=== PATIENT | female | born 1990 | race Caucasian/White ===

== ENCOUNTER 2023-04-17 16:49 | Emergency (ER) | payer OTHER, SELFPAY ==
[2023-04-17 16:59] VITALS: BP 110/65; BP 116/75; PULSE 93; PULSE 98; RESP 18; TEMP 37.1; O2SAT 100; O2SAT 98; BMI 23.8
--- NOTE | 2023-04-17 17:00 | ED.GENADULT ---
HPI - General Adult General Chief complaint: General Medical Stated complaint: CHEST PAIN DIZZY Source: patient Mode of arrival: EMS Limitations: no limitations History of Present Illness HPI narrative: Patient is a 32-year-old female who presents to the emergency department via EMS for evaluation Headache, weakness, dizziness, chills, body aches, intermittent chest pain. Reportedly started taking acomprosate yesterday, symptoms started soon after. Reports last drink 03/24/23, reportedly it is just to prevent craving while she is out with friends. Denies known sick contacts Related Data Allergies Allergy/AdvReac Type Severity Reaction Status Date / Time No Known Allergies Allergy Verified 04/17/23 17:04 Review of Systems Review of Systems: Yes all other systems are reviewed and are negative [facility] Past Medical History Attestation statement: The following information was validated with the patient. Source: old records reviewed Physical Exam ED Vital Signs: Vital Signs - 24 hr 04/17/23 16:59 Temperature 98.8 F Pulse Rate 98 Respiratory Rate 18 Blood Pressure 116/75 Pulse Oximetry 100 Oxygen Delivery Method Room Air BMI result Body Mass Index 23.8 Appearance: Alert.?Oriented to person, place and time. No acute distress.?Normal affect. Eyes: Pupils equal, round and reactive to light.? ENT: Pharynx normal.?? Neck: Normal inspection.? Neck supple.?? CVS: Heart sounds normal. Normal heart rate and rhythm.? Pulses normal.?? Respiratory: No respiratory distress.? Lung sounds clear to auscultation bilaterally?? Abdomen: Soft and non-tender. Normoactive bowel sounds. Skin: Skin warm and dry.? Normal skin color.? ? Extremities: No lower extremity edema.? No calf ttp? Neuro: Moves all extremities spontaneously. Sensation intact bilaterally. CN II-XII intact. No focal neuro deficits. Ambulates with normal steady gait. Course Reevaluation(s) Reevaluation #1: COVID-19 testing was positive which is likely the etiology of her symptoms. CBC reveals a normocytic anemia, reports a history of baseline at baseline, no hematuria, melena, hematochezia, or sources of bleeding by her account. CMP is overall unremarkable. High sensitive troponin nondetectable, EKG revealing normal sinus rhythm, with ventricular rate of 94, W[place] interval normal, QTC 422, no ST elevation, no ST depression, no acute ischemic abnormalities, unlikely ACS. Discussed plan of care for discharge home, conservative treatment, outpatient follow-up with PCP, reviewed worrisome signs and symptoms that would warrant re-evaluation in the emergency department. All questions answered. Stable for discharge. Time: 19:06 Medical Decision Making Medical Decision Making [facility] Narrative: Patient is a 32-year-old female past medical history of alcohol use disorder presenting to emergency department today with viral symptoms as per HPI. She is overall well-appearing, nontoxic, currently afebrile. She is in no apparent respiratory distress. Suspect that chest pain is less likely due to ACS given history and no risk factors. No respiratory distress, would defer CXR imaging, lower suspicion for pneumonia. PERC negative, unlikely PE. Will obtain CBC to evaluate for leukocytosis/ anemia, CMP and lipase to evaluate for abnormal electrolytes /abnormal renal function/ abnormal hepatic/biliary function, EKG and troponin to evaluate for ischemia/ACS, and viral testing. Differential Diagnosis Differential Diagnoses: The differential diagnosis associated with the presentation includes (As noted above) Lab Data [facility] Lab Attestation statement: I reviewed the patient's lab results. (See course narrative) 04/17/23 17:19 04/17/23 17:19 Labs: Lab Results 04/17/23 04/17/23 Range/Units 17:19 17:20 WBC 3.6 L (4.8-10.8) X10*3/uL RBC 3.40 L (4.20-5.50) X10*6/uL Hgb 9.9 L (12.0-16.0) g/dl Hct 29.8 L (37.0-47.0) % MCV 87.6 (80.0-98.0) fL MCH 29.1 (27.0-33.0) pg MCHC 33.2 (31.0-35.0) g/dl RDW 15.3 (11.0-16.0) % Plt Count 178 (160-400) X10*3/uL MPV 9.5 (9.4-12.3) fL Immature Gran % (Auto) 0.0 (0.0-0.4) % Neut % (Auto) 66.8 (45-73) % Lymph % (Auto) 23.6 (20-40) % [place] % (Auto) 8.4 (2-11) % Eos % (Auto) 0.6 (0-4) % Baso % (Auto) 0.6 (0-2) % Lymph # (Auto) 0.8 L (1.2-4.9) X10*3/uL [place] # (Auto) 0.3 (0.1-1.2) X10*3/uL Eos # (Auto) 0.0 (0.0-0.4) X10*3/uL Baso # (Auto) 0.0 (0.0-0.2) X10*3/uL Abs Immat Gran (auto) 0.00 (0.00-0.03) X10*3/uL Absolute Neuts (auto) 2.4 (2.0-8.3) x10*3/uL Absolute Nucleated RBC 0.000 (0.0-0.012) X10*3/uL Nucleated RBC % (auto) 0.0 (0.0-0.2) /100WBC Sodium 134 L (135-145) mmol/L Potassium 4.1 (3.3-5.1) mmol/L Chloride 103 (96-108) mmol/L Carbon Dioxide 23 (22-29) mmol/L Anion Gap 12 (12-20) BUN 10 (9-16) mg/dL Creatinine 0.70 (0.5-1.4) mg/dL Estim Creat Clear Calc 91.2 Estimated GFR > 60 Random Glucose 108 (60-115) mg/dL Calcium 8.7 (8.4-10.2) mg/dL Magnesium 1.8 (1.6-2.6) mg/dL Total Bilirubin 0.3 (0.0-1.0) mg/dL AST 21 (5-31) U/L ALT 21 (0-31) U/L Alkaline Phosphatase 54 (39-117) U/L Troponin I High Sens < 2.7 (<3.5-17.0) ng/L Total Protein 6.7 (6.5-8.0) g/dL Albumin 3.8 (3.5-5.0) g/dL Lipase 6 L (8-78) U/L COVID-19 (GOLDY) Positive A (Negative) COVID-19 Clin Com See Note Influenza Type A (ELIZABETH) Negative (Negative) Influenza Type B (ELIZABETH) Negative (Negative) Influenza A & B Note See Note Independent Historian Clinical information obtained from an independent historian. History obtained from or confirmed by: EMS Prescription Management I considered prescription management with: Antiviral (Reviewed Paxlovid, indications for use, potential side effects, used shared decision making, and patient declined) Discharge Plan Discharge Clinical Impression: COVID-19 Patient Disposition: Home, Self-Care Instructions: COVID-19 (Coronavirus Disease 2019) (ED) Additional Instructions: Your testing for COVID-19 today is positive. Per the CDC guidelines you should self isolate for 5 days. You may and isolation after 5 days if your symptoms have resolved in you are without a fever for 24 hour. Without the use of Tylenol or ibuprofen. If he develops severe worsening symptoms or concerns, difficulty breathing, you should return back to emergency room for re-evaluation. You may follow-up with your primary care provider as needed.
--- NOTE | 2023-04-17 17:03 | ECG_ITS ---
Test Reason : CP Blood Pressure : / mmHG Vent. Rate : 094 BPM Atrial Rate : 094 BPM P-R Int : 178 ms QRS Dur : 096 ms QT Int : 338 ms P-R-T Axes : 060 003 021 degrees QTc Int : 422 ms Normal sinus rhythm Cannot rule out Anterior infarct , age undetermined Abnormal ECG No previous ECGs available Referred By: Meggan Olmedo Electronically Signed By:CARMELINA HUMPHREY
[2023-04-17 17:25] LABS: MANUAL DIFF FLAG NO
[2023-04-17 17:34] LABS: Basophils Percent Auto 0.6 % (0-2); Eosinophils Percent Auto 0.6 % (0-4); Hematocrit 29.8 % (37.0-47.0); Hemoglobin 9.9 g/dl (12.0-16.0); Lymphocytes Absolute Auto 0.8 X10*3/uL (1.2-4.9); Lymphocytes Percent Auto 23.6 % (20-40); Mean Corpuscular HGB Conc 33.2 g/dl (31.0-35.0); Mean Corpuscular Hemoglobin 29.1 pg (27.0-33.0); Mean Corpuscular Volume 87.6 fL (80.0-98.0); Mean Platelet Volume 9.5 fL (9.4-12.3); Monocytes Absolute Auto 0.3 X10*3/uL (0.1-1.2); Monocytes Percent Auto 8.4 % (2-11); Neutrophils Absolute Auto 2.4 x10*3/uL (2.0-8.3); Neutrophils Percent Auto 66.8 % (45-73); Platelet Count 178 X10*3/uL (160-400); Red Cell Distribution Width 15.3 % (11.0-16.0); White Blood Count 3.6 X10*3/uL (4.8-10.8)
[2023-04-17 17:35] LABS: COVID-19 Test Positive (Negative); IDNOW Serial# 08D9AD1C
[2023-04-17 17:46] LABS: IDNOW Serial# BCCEAD1C; Influenza A Negative (Negative); Influenza B2 Negative (Negative)
[2023-04-17 17:48] LABS: Alanine Aminotransferase 21 U/L (0-31); Albumin Level 3.8 g/dL (3.5-5.0); Alkaline Phosphatase 54 U/L (39-117); Anion Gap 12 (12-20); Aspartate Amino Transferase 21 U/L (5-31); Bilirubin Total 0.3 mg/dL (0.0-1.0); Blood Urea Nitrogen 10 mg/dL (9-16); Calcium 8.7 mg/dL (8.4-10.2); Carbon Dioxide 23 mmol/L (22-29); Chloride 103 mmol/L (96-108); Creatinine Clr Calc Pharmacy 91.2; Estimated Glomerular Filt Rate > 60; Glucose Random 108 mg/dL (60-115); Lipase 6 U/L (8-78); Magnesium 1.8 mg/dL (1.6-2.6); Potassium 4.1 mmol/L (3.3-5.1); Sodium 134 mmol/L (135-145); Total Protein 6.7 g/dL (6.5-8.0)
[2023-04-17 18:08] LABS: Troponin-I High Sensitivity < 2.7 ng/L (<3.5-17.0)
== END 2023-04-17 19:17 | disposition home or self-care (01) ==
PROVIDERS: Nurse Practitioner Family; Emergency Provider Emergency Medicine Emergency Medical Services
DX: U07.1 COVID-19 (principal); R07.89 Other chest pain; R42 Dizziness and giddiness; M79.10 Myalgia, unspecified site; R51.9 Headache, unspecified; Z79.899 Other long term (current) drug therapy
CPT/HCPCS: 80053; 83690; 83735; 84484; 85025; 87502; 87635; 93005; 99283

== ENCOUNTER 2023-04-22 16:39 | Emergency (ER) | payer OTHER, SELFPAY | END 2023-04-22 19:10 | disposition left against medical advice (07) | PROVIDERS: Emergency Provider Emergency Medicine | DX: Z02.79 Encounter for issue of other medical certificate (principal) ==

== ENCOUNTER 2023-10-11 18:37 | Emergency (ER) | payer OTHER, SELFPAY ==
[2023-10-11 18:50] VITALS: BP 127/74; BP 138/84; PULSE 89; PULSE 98; RESP 18; TEMP 36; O2SAT 96; O2SAT 98; BMI 26.6
--- NOTE | 2023-10-11 18:51 | ED_ITS ---
HPI - General Adult General Chief complaint: ETOH/Substance Use Stated complaint: etoh medical clearance Time Seen by Provider: 10/11/23 22:52 Source: patient Mode of arrival: EMS Limitations: no limitations History of Present Illness HPI narrative: Patient is a 33-year-old female who presents to the emergency department, initially reporting to triage provider that she is currently residing in a sober house. Admitted to having 6 nips of alcohol between -1829 and states she can not return to her sober living house until her alcohol level is 0. She had admitted that she was 5 months sober prior to today. She denies any recreational drug usage. She is sleeping at the time of my examination, easily arousable to verbal stimuli. She does become agitated in asks to be left alone. When asked whether she has any physical complaints she states ?no and leave me alone?. Related Data Allergies Allergy/AdvReac Type Severity Reaction Status Date / Time No Known Allergies Allergy Verified 10/11/23 18:54 Review of Systems 2 Review of Systems: Yes Other (See HPI) [facility] Past Medical History Attestation statement: The following information was validated with the patient. Source: old records reviewed Social History Social History Advance Directives: No Advance Directives Information Provided: No Physical Exam ED Vital Signs: Vital Signs - 24 hr 10/11/23 18:50 10/11/23 22:34 10/11/23 23:56 Temperature 96.8 F 97.8 F 97.2 F Pulse Rate 89 74 78 Respiratory Rate 18 16 18 Blood Pressure 127/74 119/67 91/57 L Pulse Oximetry 98 96 97 Oxygen Delivery Method Room Air Room Air Room Air 10/12/23 04:38 Temperature Pulse Rate 87 Respiratory Rate 16 Blood Pressure 117/73 Pulse Oximetry 99 Oxygen Delivery Method Room Air BMI result Body Mass Index 26.6 Appearance: Alert.?Oriented to person, place and time. No acute distress.?Normal affect. Neck: Normal inspection.? Neck supple.?? CVS: Heart sounds normal. Normal heart rate and rhythm.? Pulses normal.?? Respiratory: No respiratory distress.? Lung sounds clear to auscultation bilaterally?? Abdomen: Soft and non-tender. Normoactive bowel sounds. ? Skin: Skin warm and dry.? Normal skin color.? Extremities: No lower extremity edema.? Neuro: Moves all extremities spontaneously. Sensation intact bilaterally. Ambulates with normal steady gait. Course Course Course Narrative: RME- 33-year-old female presents for evaluation of alcohol abuse. The patient from a sobriety living, she has not welcome back until she is ?medically cleared. Per EMS, the facility states medical clearance to them means the patient's alcohol has to be 0.00. Reevaluation(s) Reevaluation #1: Patient signed out to ED attending Fanta Moe pending clinical sobriety Time: 01:28 Reevaluation #2: 10/12/2023 0736 --> Patient cleared for discharge. Medications Administered Discontinued Medications Generic Name Dose Route Start Last Admin Trade Name Freq PRN Reason Stop Dose Admin Lorazepam 2 mg 10/12/23 04:38 10/12/23 04:45 Lorazepam 1 Mg Tablet PO 10/12/23 04:39 2 mg ONCE ONE Administration Ondansetron HCl 4 mg 10/12/23 04:38 10/12/23 04:45 Ondansetron Odt 4 Mg Tab.Rapdis TRANSLINGU 10/12/23 04:39 4 mg ONCE ONE Administration Medical Decision Making Medical Decision Making [facility] Narrative: Patient is a 33-year-old female with past medical history of alcohol use disorder presenting to emergency department endorsing alcohol consumption in reportedly meeting nondetectable alcohol level in order to return back to her sober living facility. It is unclear to me whether she requires specific documentation stating that her alcohol level is 0 or if she clinically needs to be sober. She has not willing to share this information with me at this time. She has no physical complaints and her physical examination is benign. Serum labs were obtained, no leukocytosis, normocytic anemia that does not meet transfusion criteria, overall unremarkable CMP lipase within normal range. Urinalysis without evidence of infection. Ethanol level 205, anticipate at approximately 04:00 should be 0. Placed in physician observation. Differential Diagnosis Differential Diagnoses: The differential diagnosis associated with the presentation includes (Alcohol intoxication, substance use disorder) Admission/Observation Consideration of admission/observation: Escalation of care including admission/observation considered (See narrative above) Lab Data [facility] Lab Attestation statement: I reviewed the patient's lab results. (See narrative above) 10/11/23 19:46 10/11/23 19:46 Labs: Lab Results 03/05/24 03/05/24 Range/Units 19:46 19:52 WBC 5.3 (4.8-10.8) X10*3/uL RBC 4.20 D (4.20-5.50) X10*6/uL Hgb 11.8 L (12.0-16.0) g/dl Hct 35.0 L (37.0-47.0) % MCV 83.3 (80.0-98.0) fL MCH 28.1 (27.0-33.0) pg MCHC 33.7 (31.0-35.0) g/dl RDW 14.2 (11.0-16.0) % Plt Count 268 D (160-400) X10*3/uL MPV 8.6 L (9.4-12.3) fL Immature Gran % (Auto) 0.2 (0.0-0.4) % Neut % (Auto) 38.1 L (45-73) % Lymph % (Auto) 55.6 H (20-40) % [place] % (Auto) 3.8 (2-11) % Eos % (Auto) 1.9 (0-4) % Baso % (Auto) 0.4 (0-2) % Lymph # (Auto) 2.9 (1.2-4.9) X10*3/uL [place] # (Auto) 0.2 (0.1-1.2) X10*3/uL Eos # (Auto) 0.1 (0.0-0.4) X10*3/uL Baso # (Auto) 0.0 (0.0-0.2) X10*3/uL Abs Immat Gran (auto) 0.01 (0.00-0.03) X10*3/uL Absolute Neuts (auto) 2.0 (2.0-8.3) x10*3/uL Absolute Nucleated RBC 0.000 (0.0-0.012) X10*3/uL Nucleated RBC % (auto) 0.0 (0.0-0.2) /100WBC Sodium 140 (135-145) mmol/L Potassium 4.3 (3.3-5.1) mmol/L Chloride 110 H (96-108) mmol/L Carbon Dioxide 24 (22-29) mmol/L Anion Gap 10 L (12-20) BUN 11 (9-16) mg/dL Creatinine 0.78 (0.5-1.4) mg/dL Estim Creat Clear Calc 94.9 Estimated GFR > 60 Random Glucose 95 (60-115) mg/dL Calcium 9.3 D (8.4-10.2) mg/dL Total Bilirubin 0.1 (0.0-1.0) mg/dL AST 21 (5-31) U/L ALT 14 (0-31) U/L Alkaline Phosphatase 65 (39-117) U/L Total Protein 8.1 H (6.5-8.0) g/dL Albumin 4.6 (3.5-5.0) g/dL Lipase 13 (8-78) U/L Urine Color Yellow Urine Appearance Clear Urine pH 6.0 (5.0-9.0) Ur Specific [place] <= 1.005 (1.005-1.025) Urine Protein Negative (Neg-Trace) mg/dL Urine Glucose (UA) Negative (Negative) mg/dL Urine Ketones Negative (Negative) mg/dL Urine Blood Negative (Negative) Urine Nitrite Negative (Negative) Ur Leukocyte Esterase Negative (Negative) Urine RBC 0-2 (0-2) /HPF Urine WBC 0-5 (0-5) /HPF Ur Squamous Epith Cells 3-5 (0-2) /HPF Urine Bacteria Trace (None Seen) Hyaline Casts 0-2 (0-2) /LPF Ethyl Alcohol 205 mg/dL Independent Historian Clinical information obtained from an independent historian. History obtained from or confirmed by: EMS Discharge Plan Discharge Clinical Impression: Alcoholic intoxication Patient Disposition: Still a Patient Instructions: Alcohol Intoxication (ED) Additional Instructions: Refrain from drinking alcohol You may return back to emergency department any new or worsening symptoms or concerns. Referrals: Physician,Unknown J [Primary Care Provider] -
[2023-10-11 19:50] LABS: MANUAL DIFF FLAG NO
[2023-10-11 19:52] LABS: Basophils Percent Auto 0.4 % (0-2); Eosinophils Absolute Auto 0.1 X10*3/uL (0.0-0.4); Eosinophils Percent Auto 1.9 % (0-4); Hemoglobin 11.8 g/dl (12.0-16.0); Imm Gran Abs Auto 0.01 X10*3/uL (0.00-0.03); Imm Gran Pct Auto 0.2 % (0.0-0.4); Lymphocytes Absolute Auto 2.9 X10*3/uL (1.2-4.9); Lymphocytes Percent Auto 55.6 % (20-40); Mean Corpuscular HGB Conc 33.7 g/dl (31.0-35.0); Mean Corpuscular Hemoglobin 28.1 pg (27.0-33.0); Mean Corpuscular Volume 83.3 fL (80.0-98.0); Mean Platelet Volume 8.6 fL (9.4-12.3); Monocytes Absolute Auto 0.2 X10*3/uL (0.1-1.2); Monocytes Percent Auto 3.8 % (2-11); Neutrophils Percent Auto 38.1 % (45-73); Platelet Count 268 X10*3/uL (160-400); Red Cell Distribution Width 14.2 % (11.0-16.0); White Blood Count 5.3 X10*3/uL (4.8-10.8)
[2023-10-11 20:05] LABS: Alanine Aminotransferase 14 U/L (0-31); Albumin Level 4.6 g/dL (3.5-5.0); Alkaline Phosphatase 65 U/L (39-117); Anion Gap 10 (12-20); Aspartate Amino Transferase 21 U/L (5-31); Bilirubin Total 0.1 mg/dL (0.0-1.0); Blood Urea Nitrogen 11 mg/dL (9-16); Calcium 9.3 mg/dL (8.4-10.2); Carbon Dioxide 24 mmol/L (22-29); Chloride 110 mmol/L (96-108); Creatinine Clr Calc Pharmacy 94.9; Estimated Glomerular Filt Rate > 60; Ethanol 205 mg/dL; Glucose Random 95 mg/dL (60-115); Lipase 13 U/L (8-78); Potassium 4.3 mmol/L (3.3-5.1); Sodium 140 mmol/L (135-145); Total Protein 8.1 g/dL (6.5-8.0)
[2023-10-11 20:16] LABS: Appearance Urine Clear; Color Urine Yellow; Glucose Urine UA Negative (Negative); Leukocyte Esterase Urine Negative (Negative); Nitrite Urine Negative (Negative); Specific Gravity - Urine <= 1.005 (1.005-1.025); Urine Blood Negative (Negative); Urine Ketones Negative (Negative); Urine Protein Negative (Neg-Trace)
[2023-10-11 20:18] LABS: Bacteria Urine Trace (None Seen); Hyaline Casts Urine 0-2 /LPF (0-2); RBC Urine 0-2 /HPF (0-2); WBC Urine 0-5 /HPF (0-5)
[2023-10-11 22:34] VITALS: BP 119/67; PULSE 74; RESP 16; TEMP 36.6; O2SAT 96
--- NOTE | 2023-10-11 22:46 | MHC.EDTECH ---
THIS PCT JUST ASSUMED CARE OF PATIENT ,VITALS TAKEN ,PATIENT REFUSED TO CHANGE INTO HOSPITAL ATTIRE ,TELEPHONE MECHANIC TORIBIO SAID PATIENT DOES NOT NEED TO CHANGE ,PATIENT AGREE FOR SECURITY TO PAT HER DOWN,WARM BLANKETS GIVEN AND PATIENT NOW SLEEPING .
[2023-10-11 23:56] VITALS: BP 91/57; PULSE 78; RESP 18; TEMP 36.2; O2SAT 97
[2023-10-12 04:38] VITALS: BP 117/73; PULSE 87; RESP 16; O2SAT 99
[2023-10-12] MEDS: Ondansetron ODT 4 MG TAB.RAPDIS TRANSLINGU (04:45)
[2023-10-12] MEDS: LORazepam 1 MG TABLET 2 MG PO (04:45)
== END 2023-10-12 09:15 | disposition home or self-care (01) ==
PROVIDERS: Physician Assistant; Emergency Provider Emergency Medicine Emergency Medical Services
DX: F10.129 Alcohol abuse with intoxication, unspecified (principal); Y90.7 Blood alcohol level of 200-239 mg/100 ml; Z79.899 Other long term (current) drug therapy; Z71.41 Alcohol abuse counseling and surveillance of alcoholic
CPT/HCPCS: 36415; 80053; 80307; 81001; 83690; 85025; 99284

== ENCOUNTER 2023-10-18 18:05 | Emergency (ER) | payer OTHER, SELFPAY ==
--- NOTE | ~2023-10-18 | CT_ITS ---
EXAMINATION: CT head/brain wo IV con CLINICAL INFORMATION: Reason for Exam facial numbness COMPARISON: None available. TECHNIQUE: Contiguous axial imaging was performed from the skull base to vertex without intravenous contrast. Sagittal and coronal reformatted images were obtained. This CT examination was performed using dose optimization techniques as appropriate, variously including the following: * Automated exposure control * Adjustment of mA and/or kV according to patient size (this includes techniques or standardized protocols for targeted exams where dose is matched to indication/reason for exam; i.e. extremities or head) Use of iterative reconstruction technique DLP: 597.91 mGy-cm mGy-cm FINDINGS: There is no evidence of acute intracranial hemorrhage. No mass-effect or ventricular shift is noted. No acute, territorial loss of lundberg-white differentiation. The ventricles and sulci are appropriate in size and configuration for the patient's stated age. No depressed calvarial fracture. Partially visualized mild paranasal sinus mucosal thickening. The mastoid air cells are clear. CT/CT head/brain wo IV con IMPRESSION: No acute intracranial hemorrhage or territorial loss of lundberg-white differentiation.
[2023-10-18 19:32] VITALS: BP 125/74; PULSE 77; RESP 18; TEMP 36.6; O2SAT 97; BMI 29.7
--- NOTE | 2023-10-18 19:38 | ED.GENADULT ---
HPI - General Adult General Chief complaint: Neuro Symptoms/Deficit Stated complaint: LT sided face numbness, droop when smiling Time Seen by Provider: 10/18/23 19:56 Source: patient, RN notes reviewed and old records reviewed Mode of arrival: ambulatory Limitations: no limitations History of Present Illness HPI narrative: 33-year-old female with past medical history significant for hypertension presents for evaluation of left-sided facial droop. She reports that she is taking amoxicillin for a dental infection She states that around 11:00 a.m. this morning she laid down for nap She woke up about 3:00 a.m. and noticed some numbness and tingling to left side of her face She reports that her friend told her that her left eye seemed to be moving funny The patient states that she has never had this before Denies any leg or arm weakness She states that she used to take metoprolol for high blood pressure but her blood pressure has been better controlled and she has not taking it She has a history of substance abuse but has been clean for several years Denies any headaches, fevers, chills Related Data Previous Rx's Medication Instructions Recorded prednisone 20 mg tablet 40 mg (2 x 20 mg) PO DAILY #8 tabs 10/18/23 valacyclovir 1 gram tablet 1,000 mg PO TID #20 tabs 10/18/23 Allergies Allergy/AdvReac Type Severity Reaction Status Date / Time No Known Allergies Allergy Verified 10/18/23 19:39 Review of Systems Constitutional: Constitutional: Denies body ache(s), Denies chills, Denies frequent falls, Denies headache(s) and Denies weakness Eyes: Eyes: Denies blurry vision, Denies floaters and Denies irritation ENT: Denies headache(s) and Denies sore throat Cardiovascular: Cardiovascular: Denies chest pain and Denies dyspnea Respiratory: Respiratory: Denies cough and Denies dyspnea Gastrointestinal: Gastrointestinal: Denies abdominal pain, Denies nausea and Denies vomiting Musculoskeletal: Musculoskeletal: Denies back pain, Reports numbness and Reports tingling Integumentary/Breasts: Skin/Breast: Denies rash Neurologic: Denies Neuro-related abnormal movements, Denies Abnormal speech present, Denies frequent falls, Denies headache(s), Reports numbness, Reports tingling, Reports paresthesias, Denies tremor(s) and Denies weakness Comments: Reports left facial droop PMFSH Social History Social History Advance Directives: No Advance Directives Information Provided: No Physical Exam ED Vital Signs: Vital Signs - 24 hr 10/18/23 19:32 10/18/23 19:46 10/18/23 22:09 Temperature 97.9 F 98.9 F 98.8 F Pulse Rate 77 67 61 Respiratory Rate 18 14 11 L Blood Pressure 125/74 132/69 131/80 Pulse Oximetry 97 98 100 Oxygen Delivery Method Room Air Room Air Room Air BMI result Body Mass Index 29.7 Const General: healthy appearing, comfortable, no acute distress, alert and awake Nutritional Appearance: well nourished Orientation/consciousness: patient oriented x3 HENMT Head: Yes normocephalic and Yes atraumatic Eyes Eyelids: Yes eyelids normal Conjunctivae: conjunctivae normal Sclerae: sclerae normal Corneas: corneas normal Pupils: Equal, round and reactive pupils present EOM: EOMs intact bilaterally Neck Neck: Yes full ROM Resp Effort & Inspection: normal respiratory effort, able to speak in complete sentences and not labored Cardio Rate: regular rate Rhythm: regular rhythm GI Inspection: No distended Palpation (GI): Soft to palpation, not firm, nontender, no guarding and not rigid Skin General skin exam: no rashes or lesions noted and elasticity normal Neuro Other: Patient appears to have left facial droop affecting the left upper eyelid, corneal side of the mouth and involving the forehead General: patient oriented x3 Cranial nerves: Yes Equal, round and reactive pupils present, Yes Bilaterally intact EOM present, Yes Midline tongue present, Yes Ability to bilaterally rotate head present and Yes Ability to bilaterally elevate shoulders present Cognition (Neuro): normal cognition Speech: No Abnormal speech present Gait exam (Neuro): Normal gait present Motor exam (neuro): 5/5 motor strength present throughout, Pronator motor function not present, no tremor noted, no asterixis and Motor fasciculations not present Extrem Other: Moving all extremities well without any obvious deformities NIH Stroke Scale Internal: Initial- Upon Arrival Level of Consciousness: Alert Level of Consciousness Questions: Answers both questions correctly Level of Consciousness Commands: Performs both tasks correctly Best Gaze: Normal Visual: No visual loss Facial Palsy: Partial paralysis (left) Motor Arm (Right): No drift Motor Arm (Left): No drift Motor Leg (Right): No drift Motor Leg (Left): No drift Limb Ataxia: Absent Sensory: Normal Best Language: No aphasia Dysarthia: Normal Extinction and Inattention: No abnormality Score: 2 Course Course Course Narrative: RME: 33 yold female presents to ED for left facial droop. Patient woke up with symptoms at around 15:00. Patient denies any other neurological symptoms. Patient not on any blood thinners. Patient on control pills. Patient states diagnosed with high blood pressure in the past but was taken off meds. Patient bring back to the ED. Reevaluation(s) Reevaluation #1: CT scan unremarkable, will treat as well as palsy Time: 21:55 Medications Administered Discontinued Medications Generic Name Dose Route Start Last Admin Trade Name Freq PRN Reason Stop Dose Admin Prednisone 60 mg 10/18/23 21:31 10/18/23 22:08 Prednisone 20 Mg Tablet PO 10/18/23 21:32 60 mg ONCE ONE Administration Valacyclovir HCl 1,000 mg 10/18/23 21:31 10/18/23 22:09 Valacyclovir Hcl 1,000 Mg Tablet PO 10/18/23 21:32 1,000 mg ONCE ONE Administration Medical Decision Making Medical Decision Making MDM Narrative: 33-year-old female presents for evaluation left-sided facial droop. Her last known well time was 8 hours prior to arrival/my evaluation. Her physical exam is most concerning for Pride's palsy as her symptoms involve the forehead. She has no weakness, numbness, tingling or any neuro deficits to the upper or lower extremities bilaterally. Plan for CT scan of the brain to rule out mass. Patient reports a history of hypertension that has been well controlled and she has not currently taking any antihypertensive medication. She has no other risk factors for CVA Differential Diagnosis Differential Diagnoses: The differential diagnosis associated with the presentation includes Pride's palsy Cranial nerve palsy Intracranial hemorrhage CVA less likely Discharge Plan Discharge Clinical Impression: Pride's palsy Patient Disposition: Home, Self-Care Instructions: Pride Palsy (ED) Additional Instructions: Your symptoms are not consistent with a stroke. Your symptoms are most likely related to Pride's palsy Take prednisone as directed for 4 additional days starting tomorrow Take valacyclovir for 1 week Prescriptions: New prednisone 20 mg tablet 40 mg PO DAILY Qty: 8 0RF valacyclovir 1 gram tablet 1,000 mg PO TID Qty: 20 0RF Interventions: ED Discharge Assessment Last Done: 10/18/23 22:13 Discharge Date/Time: 10/18/23 22:13
[2023-10-18 19:46] VITALS: BP 132/69; PULSE 67; RESP 14; TEMP 37.2; O2SAT 98
[2023-10-18] MEDS: predniSONE 20 MG TABLET 60 MG PO (22:08)
[2023-10-18 22:09] VITALS: BP 131/80; PULSE 61; RESP 11; TEMP 37.1; O2SAT 100
[2023-10-18] MEDS: valACYclovir HCL 1,000 MG TABLET 1000 MG PO (22:09)
== END 2023-10-18 22:13 | disposition home or self-care (01) ==
PROVIDERS: Emergency Provider Emergency Medicine
DX: G51.0 Bell's palsy (principal); R29.702 NIHSS score 2
CPT/HCPCS: 70450; 99284

== ENCOUNTER 2023-10-27 19:57 | Emergency (ER) | payer OTHER, SELFPAY ==
[2023-10-27 20:48] VITALS: BP 174/112; PULSE 130; RESP 20; TEMP 37; O2SAT 97; BMI 28.3
--- NOTE | 2023-10-27 20:53 | ED.GENADULT ---
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 given prednisone and Valtrex today comes as she noticed redness of the left side of the face feels warm and has pain did have history of dental pain about 2 weeks ago and she took antibiotic no fever on arrival patient had low-grade fever at home Related Data Previous Rx's Medication Instructions Recorded prednisone 20 mg tablet 40 mg (2 x 20 mg) PO DAILY #8 tabs 10/18/23 valacyclovir 1 gram tablet 1,000 mg PO TID #20 tabs 10/18/23 doxycycline hyclate 100 mg tablet 100 mg PO BID #20 tabs 10/27/23 Allergies Allergy/AdvReac Type Severity Reaction Status Date / Time No Known Allergies Allergy Verified 10/27/23 20:47 Review of Systems Review of Systems: Yes all other systems are reviewed and are negative [facility] Social History Social History Alcohol intake: current Alcohol type: hard liquor Smoked in Last 30 Days: Yes Use of substances other than those prescribed or required for medical reasons: No Advance Directives: No Advance Directives Information Provided: No Patient : No Physical Exam ED Vital Signs: Vital Signs - 24 hr 10/27/23 20:48 10/27/23 22:20 10/27/23 23:33 Temperature 98.6 F 99.1 F 99.0 F Pulse Rate 130 H 108 H 98 Respiratory Rate 20 16 14 Blood Pressure 174/112 H 152/99 H 136/89 Pulse Oximetry 97 99 97 Oxygen Delivery Method Room Air Room Air Room Air BMI result Body Mass Index 28.3 Appearance: Alert. Oriented X3. No acute distress. ENT: Pharynx normal. Oral Mucosa moist slight redness of the left side of the face with local warmth Neck: Normal inspection. Neck supple. CVS: Normal heart rate and rhythm. Pulses normal. Respiratory: No respiratory distress. Equal air entry bilateral, no wheezing/rales/rhonchi Abdomen: Soft and nontender. Bowel sounds are present, no mass palpable, Skin: Skin warm and dry. Normal skin color. Normal skin turgor. Extremities: No lower extremity edema. No calf tenderness Neuro: Oriented X 3. No motor deficit. Left partial Pride's palsy Course Course Course Narrative: This is an RME: Additional HPI, ROS, PE not included below will be deferred to primary provider. 33-year-old female presents with complaints of left-sided facial pain recently diagnosed with Pride's palsy however pain is not going away. Neuro nonfocal. Medications Administered Discontinued Medications Generic Name Dose Route Start Last Admin Trade Name Vero PRN Reason Stop Dose Admin Doxycycline Monohydrate 100 mg 10/27/23 22:48 10/27/23 23:30 Doxycycline Monohydrate 100 Mg Capsule PO 10/27/23 22:49 100 mg ONCE ONE Administration Medical Decision Making Medical Decision Making [facility] Narrative: Patient with mild cellulitis of the left face will give doxycycline advised to continue with the massage of the left side of the face labs are stable Lab Data [facility] Lab Attestation statement: I reviewed the patient's lab results. 10/27/23 21:13 10/27/23 21:13 Labs: Lab Results 10/27/23 Range/Units 21:13 WBC 7.0 (4.8-10.8) X10*3/uL RBC 3.97 L (4.20-5.50) X10*6/uL Hgb 11.2 L (12.0-16.0) g/dl Hct 34.5 L (37.0-47.0) % MCV 86.9 (80.0-98.0) fL MCH 28.2 (27.0-33.0) pg MCHC 32.5 (31.0-35.0) g/dl RDW 14.6 (11.0-16.0) % Plt Count 306 (160-400) X10*3/uL MPV 8.2 L (9.4-12.3) fL Immature Gran % (Auto) 0.1 (0.0-0.4) % Neut % (Auto) 44.7 L (45-73) % Lymph % (Auto) 48.2 H (20-40) % [place] % (Auto) 5.6 (2-11) % Eos % (Auto) 1.0 (0-4) % Baso % (Auto) 0.4 (0-2) % Lymph # (Auto) 3.4 (1.2-4.9) X10*3/uL [place] # (Auto) 0.4 (0.1-1.2) X10*3/uL Eos # (Auto) 0.1 (0.0-0.4) X10*3/uL Baso # (Auto) 0.0 (0.0-0.2) X10*3/uL Abs Immat Gran (auto) 0.01 (0.00-0.03) X10*3/uL Absolute Neuts (auto) 3.1 (2.0-8.3) x10*3/uL Absolute Nucleated RBC 0.000 (0.0-0.012) X10*3/uL Nucleated RBC % (auto) 0.0 (0.0-0.2) /100WBC ESR 17 (0-20) MM/HR Sodium 142 (135-145) mmol/L Potassium 4.6 (3.3-5.1) mmol/L Chloride 105 (96-108) mmol/L Carbon Dioxide 26 (22-29) mmol/L Anion Gap 16 (12-20) BUN 12 (9-16) mg/dL Creatinine 0.82 (0.5-1.4) mg/dL Estim Creat Clear Calc 93.1 Estimated GFR > 60 Random Glucose 106 (60-115) mg/dL Calcium 9.6 (8.4-10.2) mg/dL Magnesium 2.2 (1.6-2.6) mg/dL Total Bilirubin 0.4 (0.0-1.0) mg/dL AST 27 (5-31) U/L ALT 26 (0-31) U/L Alkaline Phosphatase 78 (39-117) U/L C-Reactive Protein 0.80 H (< or = 0.50) mg/dL Total Protein 8.2 H (6.5-8.0) g/dL Albumin 4.7 (3.5-5.0) g/dL Discharge Plan Discharge Clinical Impression: Pride's palsy, Cellulitis Patient Disposition: Home, Self-Care Instructions: Cellulitis (ED), Pirde Palsy (ED) Additional Instructions: Your pain feeling of the left face is likely from healing of the Pride's palsy Possibly have mild cellulitis of the left side of the face Take antibiotic as prescribed Facial massage and exercises as advised Prescriptions: New doxycycline hyclate 100 mg tablet 100 mg PO BID Qty: 20 0RF No Action prednisone 20 mg tablet 40 mg PO DAILY Qty: 8 0RF valacyclovir 1 gram tablet 1,000 mg PO TID Qty: 20 0RF Interventions: ED Discharge Assessment Last Done: 10/27/23 23:33 Discharge Date/Time: 10/27/23 23:35
[2023-10-27 21:17] LABS: MANUAL DIFF FLAG NO
[2023-10-27 21:20] LABS: Basophils Percent Auto 0.4 % (0-2); Eosinophils Absolute Auto 0.1 X10*3/uL (0.0-0.4); Hematocrit 34.5 % (37.0-47.0); Hemoglobin 11.2 g/dl (12.0-16.0); Imm Gran Abs Auto 0.01 X10*3/uL (0.00-0.03); Imm Gran Pct Auto 0.1 % (0.0-0.4); Lymphocytes Absolute Auto 3.4 X10*3/uL (1.2-4.9); Lymphocytes Percent Auto 48.2 % (20-40); Mean Corpuscular HGB Conc 32.5 g/dl (31.0-35.0); Mean Corpuscular Hemoglobin 28.2 pg (27.0-33.0); Mean Corpuscular Volume 86.9 fL (80.0-98.0); Mean Platelet Volume 8.2 fL (9.4-12.3); Monocytes Absolute Auto 0.4 X10*3/uL (0.1-1.2); Monocytes Percent Auto 5.6 % (2-11); Neutrophils Absolute Auto 3.1 x10*3/uL (2.0-8.3); Neutrophils Percent Auto 44.7 % (45-73); Platelet Count 306 X10*3/uL (160-400); Red Blood Count 3.97 X10*6/uL (4.20-5.50); Red Cell Distribution Width 14.6 % (11.0-16.0)
[2023-10-27 21:34] LABS: Alanine Aminotransferase 26 U/L (0-31); Albumin Level 4.7 g/dL (3.5-5.0); Alkaline Phosphatase 78 U/L (39-117); Anion Gap 16 (12-20); Aspartate Amino Transferase 27 U/L (5-31); Bilirubin Total 0.4 mg/dL (0.0-1.0); Blood Urea Nitrogen 12 mg/dL (9-16); Calcium 9.6 mg/dL (8.4-10.2); Carbon Dioxide 26 mmol/L (22-29); Chloride 105 mmol/L (96-108); Creatinine Clr Calc Pharmacy 93.1; Estimated Glomerular Filt Rate > 60; Glucose Random 106 mg/dL (60-115); Magnesium 2.2 mg/dL (1.6-2.6); Potassium 4.6 mmol/L (3.3-5.1); Sodium 142 mmol/L (135-145); Total Protein 8.2 g/dL (6.5-8.0)
[2023-10-27 22:03] LABS: Erythrocyte Sedimentation Rate 17 MM/HR (0-20)
[2023-10-27 22:20] VITALS: BP 152/99; PULSE 108; RESP 16; TEMP 37.3; O2SAT 99
[2023-10-27] MEDS: Doxycycline Monohydrate 100 MG CAPSULE PO (23:30)
[2023-10-27 23:33] VITALS: BP 136/89; PULSE 98; RESP 14; TEMP 37.2; O2SAT 97
== END 2023-10-27 23:35 | disposition home or self-care (01) ==
PROVIDERS: Physician Assistant; Emergency Provider Internal Medicine
DX: G51.0 Bell's palsy (principal); R51.9 Headache, unspecified; Z79.899 Other long term (current) drug therapy
CPT/HCPCS: 36415; 80053; 83735; 85025; 85652; 86140; 99283; 99284

== ENCOUNTER 2025-01-01 12:03 | Emergency (ER) | payer OTHER, SELFPAY ==
--- NOTE | ~2025-01-01 | XR_ITS ---
EXAMINATION: XR LUMBOSACRAL SPINE CLINICAL INFORMATION: R low back pain COMPARISON: None available. TECHNIQUE: Three views of the lumbosacral spine. FINDINGS: S-shaped curvature of the thoracolumbar junction. No acute cortical disruption or gross malalignment. No lytic or blastic lesions. XR/XR lumbar spine 2-3V IMPRESSION: No acute fracture or gross listhesis. Electronically signed by: Fly Grajeda MD 01/01/2025 12:27 PM EDT
[2025-01-01 12:06] VITALS: BP 122/77; PULSE 78; RESP 18; TEMP 35.6; O2SAT 98; BMI 26.3
--- NOTE | 2025-01-01 12:08 | ED.BACK ---
HPI - Back Pain/Injury General Chief Complaint: Back Pain/Injury Stated Complaint: Back pain Time Seen by Provider: 01/01/25 13:20 Source: patient, RN notes reviewed and old records reviewed Mode of arrival: ambulatory History of Present Illness ED Provider: Lakeisha Love PA-C HPI Narrative: 34-year-old female with no significant past medical history presenting to the ED complaining of right-sided low back pain radiating down RLE x 5 days s/p pulling oven door to move oven and then cleaning it. Reports pain worse with position changes/movement. Denies direct injury/trauma or fall, numbness, tingling, weakness, incontinence, retention, hematuria/dysuria. Also reports dark spots to face x years, previously saw dermatology & was prescribed topical cream however has not followed up, looking for new prescription Related Data Previous Rx's ?Medication ?Instructions ?Recorded prednisone 20 mg tablet 40 mg (2 x 20 mg) PO DAILY #8 tabs 10/18/23 valacyclovir 1 gram tablet 1,000 mg PO TID #20 tabs 10/18/23 doxycycline hyclate 100 mg tablet 100 mg PO BID #20 tabs 10/27/23 acetaminophen 500 mg tablet 500 mg PO Q6H PRN fever or pain 01/01/25 (Tylenol Extra Strength) #14 tabs cyclobenzaprine 5 mg tablet 5 mg PO Q8H PRN pain (scale score 01/01/25 7-10) 5 days #14 tabs lidocaine 5 % topical patch 1 patch topical DAILY PRN pain #30 01/01/25 (Lidoderm) ea naproxen 500 mg tablet 500 mg PO BID PRN pain 10 days #20 01/01/25 tabs Allergies Allergy/AdvReac Type Severity Reaction Status Date / Time No Known Allergies Allergy Verified 01/01/25 12:08 Review of Systems Review of Systems: Yes all other systems are reviewed and are negative Constitutional: Constitutional: Reports as per HPI Neurologic: Denies Sensory deficit (Neuro) PMFSH Past Medical History Attestation statement: The following information was validated with the patient. Source: old records reviewed Social History Social History Alcohol intake: current Alcohol type: hard liquor Physical Exam Vital Signs: Vital Signs: Last Vital Signs Temp 96.0 F L 01/01/25 12:06 Pulse 78 01/01/25 12:06 Resp 18 01/01/25 12:06 BP 122/77 01/01/25 12:06 Pulse Ox 98 01/01/25 12:06 O2 Del Method Room Air 01/01/25 12:06 BMI result Body Mass Index 26.3 Const: General: cooperative, healthy appearing and no acute distress Orientation/consciousness: patient oriented x3 Limitations: no limitations HEENT: Other: Darker pigmentation noted to forehead and cheeks Head: Yes normal to inspection and Yes atraumatic Ears: hearing grossly normal bilaterally General nose exam: Normal external nose present Face and sinus: Yes normal facial exam Eyes: General: appearance normal, both eyes and all related structures EOM: EOMs intact bilaterally Neck: Neck: Yes normal visual inspection and Yes no meningeal signs Resp: Effort & Inspection: normal respiratory effort and no respiratory distress Cardio: Rate: regular rate GI: Inspection: Yes normal to inspection Palpation (GI): Soft to palpation, nontender, no guarding and not rigid : General: Yes no CVA tenderness Back/Spine/Pelvis: Other: No midline cervical/thoracic/lumbar spinous tenderness/step-off or deformity. + right-sided lumbar paraspinal/MSK reproducible tenderness to palpation. No erythema/ecchymosis or rash. Back: no CVA tenderness Skin: Rashes: no rashes Wounds: no wounds Neuro: Other: Strength intact throughout. No saddle anesthesia. Sensation intact to light touch. Neurovascular intact distally General: patient oriented x3, gait normal, tone normal, moves all extremities, no meningeal signs and no focal motor deficits Cranial nerves: Yes CN's II-XII intact bilaterally Gait exam (Neuro): Normal gait present Motor exam (neuro): 5/5 motor strength present throughout Sensory Exam: No Sensory deficit (Neuro) Extrem: General: Yes normal to inspection Course Course Course Narrative: This is a Rapid Medical Exam performed in triage by Lakeisha Love PA-C. Full HPI, ROS and PE to be performed by primary ED provider. 34 yo F presenting to the ED c/o low back pain radiating to RLE x5 days s/p pulling on over door to move oven & then cleaning oven. denies incontinence/retention, fever, chills, dysuria/hematuria, weakness. Also reports dark spots to face x awhile which are worsening, saw Dermatology & looking for the same cream they previously prescribed PE: no midline spinous ttp. +R lower MSK ttp, ambulating w/steady gait Plan: XR, pain control XR lumbar spine 2-3V IMPRESSION: No acute fracture or gross listhesis. Results discussed with patient including worrisome signs and symptoms and strict return precautions, and when to return to the emergency department. They verbalized understanding and feel safe for discharge at this time. Medical Decision Making Medical Decision Making MDM Narrative: 34-year-old female with no significant past medical history presenting to the ED complaining of right-sided low back pain radiating down RLE x 5 days s/p pulling oven door to move oven and then cleaning it. On exam VSS, NAD, physical exam as noted above. No midline spinous tenderness throughout or red flag symptoms. Ambulating with steady gait. Concern for MSK pain/strain vs sciatica vs ? Herniated disc. Low suspicion for cauda equina, cord compression, epidural abscess for renal stones/pyelo. Plan: Pain management, PCP and dermatology follow-up Please refer to course for remaining clinical decision making, interpretation of labs/imaging results, and discussions with consultants and/or family members. Differential Diagnosis Differential Diagnoses: The differential diagnosis associated with the presentation includes As above Admission/Observation Consideration of admission/observation: Escalation of care including admission/observation considered Lab Data [facility] Lab Attestation statement: I reviewed the patient's lab results. Independent Interpretation I performed an independent interpretation of an: Plain X-Ray Radiology Impression Discussion of test interpretation with radiology: I have reviewed the radiologist's reading. External Record Review External record reviewed: Inpatient record, Office record, Outpatient record, Prior outpatient labs, Prior outpatient radiology, Primary care record and Outside ED record Tests considered The following testing was considered but not selected: As above Prescription Management I considered prescription management with: Pain Medication Chronic Conditions Patient?s care impacted by: Other Social Determinants Patient?s care significantly limited by Social Determinants of Health including: Other Social Determinant of Health Discharge Plan Discharge Clinical Impression: Strain of lumbar region, Melasma Patient Disposition: Home, Self-Care Instructions: Back Pain (ED) Additional Instructions: Your pain is likely musculoskeletal Flexeril is a muscle relaxer, take at night as it makes you drowsy, do not drive, drink alcohol, or operate machinery while taking it Naproxen as an anti-inflammatory / pain medication, take with food Lidoderm patches are numbing patches, apply to painful area In addition take Tylenol at home If symptoms persist or worsen, pain becomes unbearable, you developed urinary retention or incontinence, or weakness return to the ED Prescriptions: New acetaminophen [Tylenol Extra Strength] 500 mg tablet 500 mg PO Q6H PRN (Reason: fever or pain) Qty: 14 0RF lidocaine [Lidoderm] 5 % adhesive patch,medicated 1 patch topical DAILY MDD remove after 12 hours PRN (Reason: pain) Qty: 30 0RF Rx Instructions: leave on most painful area for up to 12 hrs naproxen 500 mg tablet 500 mg PO BID PRN (Reason: pain) 10 Days Qty: 20 0RF cyclobenzaprine 5 mg tablet 5 mg PO Q8H PRN (Reason: pain (scale score 7-10)) 5 Days Qty: 14 0RF No Action doxycycline hyclate 100 mg tablet 100 mg PO BID Qty: 20 0RF prednisone 20 mg tablet 40 mg PO DAILY Qty: 8 0RF valacyclovir 1 gram tablet 1,000 mg PO TID Qty: 20 0RF Referrals: [facility] [Outside] [facility] [Outside] Physician,None [Primary Care Provider] - Discharge Date/Time: 01/01/25 13:35 Print Language: Monegasque
[2025-01-01 13:26] VITALS: BP 109/72; PULSE 78; RESP 16; TEMP 36.6; O2SAT 99
[2025-01-01 13:34] VITALS: BP 109/72; PULSE 78; RESP 16; TEMP 36.6; O2SAT 99
--- OUTSIDE RECORDS SUMMARY | 2025-01-01 13:37 | XMS_ITS | Clinical Summary ---
Author Organization [employer] Address [address] [place] [address] [address] [place] [address] Care Team Providers [employer] Counsel[employer] Name Role Phone Unavailable Primary Care Provider Unavailabl e Allergies No known active allergies Medications citalopram (CeleXA) 40 MG tablet Take 40 mg by mouth in the morning. 01/21/2023 Active Mavyret 100-40 MG tablet 01/24/2023 Active hydrOXYzine pamoate (Vistaril) 25 MG capsule Take 25 mg by mouth if needed in the morning, at noon, and at bedtime. 01/25/2023 Active clonazePAM (KlonoPIN) 0.5 MG tablet Take 0.5 mg by mouth 2 times daily. 02/01/2023 Active acetaminophen (Tylenol) 500 MG tabletIndication s:Necrosis of dental pulp Take 1 tablet (500 mg) by mouth every 6 (six) hours if needed for mild pain for up to 20 doses. 20 tablet 10/11/2023 Active Active Problems No known active problems Social History Tobacco Use Types Packs/Day Years Used Date Smoking Tobacco: Every Day Cigarettes 0.5 19 Smokeless Tobacco: Never Tobacco Cessation:Ready to Q uit: Not Asked; Counseling Given: Not Answered Alcohol Use Standard Drinks/Week Comments Never 0 (1 standard drink = 0.6 oz pur e alcohol) Comments Unknown Sex and Gender Information Value Date Recorded Sex Assigned at Female 01/25/2023 2:15 PM EDT Legal Sex Female 2:13 PM EDT Gender Identity Female 01/25/2023 2:15 PM EDT Sexual Orientation Straight 01/25/2023 2: 15 PM EDT Last Filed Vital Signs Vital Sign Reading Time Taken Comments Blood Pressure 110/70 10/11/2023 1:57 PM EST Pulse 70 10/11/2023 1:57 PM EST Temperature 36.9 ??C (98.5 ??F) 02/04/2023 9:54 AM ED T Respiratory Rate 16 02/04/2023 9:54 AM EDT Oxygen Saturation 97% 02/04/2023 9:54 AM EDT Inhaled Oxygen Concentration - - Weight 64.8 kg (142 lb 12.8 oz) 02/04/2023 9:54 AM EDT Height 159.3 cm (5' 2.7 ) 02/04/2023 9:54 AM EDT Body Mass Index 25.54 02/04/2023 9:54 AM EDT Plan of Treatment Health Maintenance Due Date Last Done Comments Dental Oral Exam 1990 Dental Prophylaxis 1990 Dental X-Ray: Full Mouth 1990 Depression Screening 1990 HIV Screening 1990 SDOH Screening 1990 Disability Screening 1990 Alcohol/Substance Use Screening 2002 Family Planning (PISQ) 2005 Hepatitis C Screening 2008 DTaP/Tdap/Td Vaccines (1 - Tdap) 2009 Hepatitis B Vaccines (1 of 3 - 19+ 3-dose series) 2009 Pneumococcal Vaccine: Pediat rics (0 to 5 Years) and At-Risk Patients (6 to 49) Years) (1 of 2 - PCV) 2009 Pap Smear 2011 Cervical Cancer Screening 2020 HPV/Cotest 2020 COVID-19 Vaccine ( - 2023-2 5 season) 2024 Influenza Vaccine (#1) 2024 Tobacco Screening 10/10/2024 10/11/2023 Dental X-Ray: Bitewings 10/11/2024 10/11/2023 Zoster Vaccines (1 of 2) 2040 RSV Patients and Pa tients Aged 60 years or older (1 - 1-dose 75+ series) 2065 HIB Vaccines Aged Out No longer eligi ble based on patient's age to complete this topic HPV Vaccines Aged Out No longer eligi ble based on patient's age to complete this topic Hepatitis A Vaccines Aged Out No long er eligible based on patient's age to complete this topic IPV Vaccines Aged Out No longer eligi ble based on patient's age to complete this topic Meningococcal B Vaccine Aged Out No l onger eligible based on patient's age to complete this topic Meningococcal Vaccine Aged Out No narciso aimee eligible based on patient's age to complete this topic RSV under 20 months Aged Out No longe r eligible based on patient's age to complete this topic Rotavirus Vaccines Aged Out No longer eligible based on patient's age to complete this topic Procedures Procedure Name Priority Date/Time Associated Diagnosis Comments BITEWING - SINGLE RADIOGRAPHIC IMAGE Routine 10/11/2023 2:00 PM EST Necrosis of dental pulp from Last 3 Months or Most Recently Relevant to Health Maintenance Insurance [address] [place] [address] [facility] MEDICAID STAND ADULT
== END 2025-01-01 13:35 | disposition home or self-care (01) ==
LOC: HO.ED 13:31
PROVIDERS: Emergency Provider Emergency Medicine
DX: S39.012A Strain of muscle, fascia and tendon of lower back, initial encounter (principal); L81.1 Chloasma; X58.XXXA Exposure to other specified factors, initial encounter; X50.9XXA Other and unspecified overexertion or strenuous movements or postures, initial encounter; Y93.9 Activity, unspecified; Y92.9 Unspecified place or not applicable; Y99.8 Other external cause status
CPT/HCPCS: 72100; 99282; 99283

== ENCOUNTER → 2025-01-01 12:10 | Outpatient (BNV) | payer OTHER, SELFPAY | PROVIDERS: Visit Provider Radiology Diagnostic Radiology | DX: M54.50 Low back pain, unspecified (principal) | CPT/HCPCS: 72100 ==

== ENCOUNTER 2025-01-14 16:02 | Emergency (ER) | payer OTHER, SELFPAY ==
--- NOTE | ~2025-01-14 | XR_ITS ---
EXAMINATION: XR ABDOMEN KUB CLINICAL INDICATION: Back pain, constipation for 2 weeks, COMPARISON: L-spine x-ray from January 01, 2025 TECHNIQUE: AP view of the abdomen. FINDINGS: A moderate to large amount of stool is present in the colon extending from the hepatic flexure to splenic flexure. This is increased from the prior study. There are no air-fluid levels. No other abnormalities are evident. XR/XR KUB IMPRESSION: Increasing colonic stool. Electronically signed by: Bhavik Delgado MD 01/14/2025 04:48 PM EDT
[2025-01-14 16:11] VITALS: BP 109/62; PULSE 79; RESP 19; TEMP 36.1; O2SAT 98; BMI 25.7
--- NOTE | 2025-01-14 16:13 | ED_ITS ---
HPI - General Adult General Chief complaint: Back Pain/Injury Stated complaint: back pain & constipation +10 days Time Seen by Provider: 01/14/25 20:53 Source: patient and old records reviewed Mode of arrival: ambulatory Limitations: no limitations History of Present Illness ED Provider: RAMESH TAYLOR narrative: 34 yo female with PMH of constipation usually takes stool softeners, opiate use disorder on methadone, who reports worsening constipation x 1 week really due to lack of taking her medications. She last had a hard BM 2 to 3 days ago. No n/v. Has had flatus daily. She notes she is here for better med management. She has appointment with PCP on Tuesday. Also wants refills for recent back strain - no active IVDA responded well to betty TY complaint: constipation Onset (ago): month(s) Location: abdomen Radiation: non-radiation Severity: mild Quality: aching Pain Consistency: intermittent Relieving factors: medication Exacerbating factors: none Associated symptoms: denies other symptoms Treatments prior to arrival: other Related Data Previous Rx's ?Medication ?Instructions ?Recorded prednisone 20 mg tablet 40 mg (2 x 20 mg) PO DAILY #8 tabs 10/18/23 valacyclovir 1 gram tablet 1,000 mg PO TID #20 tabs 10/18/23 doxycycline hyclate 100 mg tablet 100 mg PO BID #20 tabs 10/27/23 acetaminophen 500 mg tablet 500 mg PO Q6H PRN fever or pain 01/01/25 (Tylenol Extra Strength) #14 tabs cyclobenzaprine 5 mg tablet 5 mg PO Q8H PRN pain (scale score 01/01/25 7-10) 5 days #14 tabs lidocaine 5 % topical patch 1 patch topical DAILY PRN pain #30 01/01/25 (Lidoderm) ea naproxen 500 mg tablet 500 mg PO BID PRN pain 10 days #20 01/01/25 tabs cyclobenzaprine 10 mg tablet 10 mg PO TID PRN muscle spasm #20 01/14/25 tabs lactulose 10 gram/15 mL oral 20 g (30 mL) PO BID PRN 01/14/25 solution (Constulose) constipation #1,200 mL sennosides 8.6 mg tablet (senna) 8.6 mg PO BEDTIME PRN constipation 01/14/25 #30 tabs Allergies Allergy/AdvReac Type Severity Reaction Status Date / Time No Known Allergies Allergy Verified 01/14/25 16:13 Review of Systems Review of Systems: Constitutional : No Weight loss, No Fever, No Chills, ENT/Mouth : No Hearing loss, No Ear Pain, No Nasal Congestion, No Sinus Pain, No Hoarseness, No sore throat, No Rhinorrhea, No Swallowing Difficulty Cardiovascular : No Chest Pain, No SOB Respiratory : No Cough, No Dyspnea Gastrointestinal : No Nausea, No Vomiting, No Diarrhea, No abdominal Pain, No Hematochezia, No Melena, pos constipation Genitourinary : No Dysuria, No Urinary Frequency, No Hematuria, No Urinary Incontinence, Musculoskeletal : positive back pain Skin : No Skin Lesions, No rash Neuro : No Weakness, No Numbness, No Paresthesias, no loss of bowel or bladder incontinence, no saddle anesthesia all other systems reviewed and are negative [facility] Past Medical History Attestation statement: The following information was validated with the patient. Source: old records reviewed Medical History Constipation Social History Social History Alcohol intake: current Alcohol type: hard liquor Smoked in Last 30 Days: Yes Use of substances other than those prescribed or required for medical reasons: No Advance Directives: No Advance Directives Information Provided: No Do you have a plan to hurt others: No Plan Patient : No Physical Exam ED Vital Signs: Vital Signs - 24 hr 01/14/25 16:11 01/14/25 21:33 01/14/25 21:54 Temperature 97 F 98.1 F 98.1 F Pulse Rate 79 74 74 Respiratory Rate 19 16 16 Blood Pressure 109/62 101/58 L 101/58 L Pulse Oximetry 98 99 99 Oxygen Delivery Method Room Air Room Air Room Air BMI result Body Mass Index 25.7 Appearance: Alert. Oriented X3. No acute distress. Eyes: Pupils equal, round and reactive to light. ENT: Pharynx normal. Neck: Normal inspection. Neck supple. CVS: Normal heart rate and rhythm. Pulses normal. Respiratory: No respiratory distress. Breath sounds normal. Abdomen: Soft and nontender. Back: no ext trauma noted Skin: Skin warm and dry. Normal skin color. Normal skin turgor. Extremities: No lower extremity edema. No calf ttp Neuro: Oriented X 3. No motor deficit. No sensory deficit. CN2-12 intact Course Course Course Narrative: RME, this is a rapid medical exam performed by Bharath Griffin please refer to primary provider for complete H&P- 34 year old female presents for evaluation of low back pain for thelalst few weeks. She was seen here at the end of December and prescribed Flexeril and lidocaine in addition to Ibuprofen and Tylenol. She is looking for a refill of those. She is also concerned about constipatipation. Plan for KUB Medications Administered Discontinued Medications Generic Name Dose Route Start Last Admin Trade Name Freq PRN Reason Stop Dose Admin Lactulose 20 gm 01/14/25 21:14 01/14/25 21:52 Lactulose 20 Gm/30 Ml Solution PO 01/14/25 21:15 20 gm ONCE ONE Administration Senna 8.6 mg 01/14/25 21:14 01/14/25 21:52 Sennosides 8.6 Mg Tablet PO 01/14/25 21:15 8.6 mg BEDTIME ONE Administration Medical Decision Making Medical Decision Making [facility] Narrative: 34 yo female with PMH of constipation usually takes stool softeners, opiate use disorder on methadone, now here with persistent constipation suspect due to mediactions this is not new from back injury. At this time xray ordered though no obstructive symptoms. She will get senna and lactulose as well as start on flexeril. She is neuro intact and abdomen is not tender. Differential Diagnosis Differential Diagnoses: The differential diagnosis associated with the presentation includes constipation, med reaction, back strain no fevers or IVDA to suggest abscess Admission/Observation Consideration of admission/observation: Escalation of care including admission/observation considered can be managed as outpatient Independent Interpretation I performed an independent interpretation of an: Plain X-Ray (constipation) Radiology Impression Discussion of test interpretation with radiology: I have reviewed the radiologist's reading. External Record Review External record reviewed: Outpatient record Prescription Management I considered prescription management with: Other Discharge Plan Discharge Clinical Impression: Constipation Patient Disposition: Home, Self-Care Instructions: Constipation (ED) Additional Instructions: xray shows constipation return for vomiting, fevers, numbness, weakness, unable to eat or drink Prescriptions: New cyclobenzaprine 10 mg tablet 10 mg PO TID PRN (Reason: muscle spasm) Qty: 20 0RF sennosides [senna] 8.6 mg tablet 8.6 mg PO BEDTIME PRN (Reason: constipation) Qty: 30 0RF lactulose [Constulose] 10 gram/15 mL solution 20 g PO BID PRN (Reason: constipation) Qty: 1200 0RF No Action doxycycline hyclate 100 mg tablet 100 mg PO BID Qty: 20 0RF acetaminophen [Tylenol Extra Strength] 500 mg tablet 500 mg PO Q6H PRN (Reason: fever or pain) Qty: 14 0RF lidocaine [Lidoderm] 5 % adhesive patch,medicated 1 patch topical DAILY MDD remove after 12 hours PRN (Reason: pain) Qty: 30 0RF Rx Instructions: leave on most painful area for up to 12 hrs naproxen 500 mg tablet 500 mg PO BID PRN (Reason: pain) 10 Days Qty: 20 0RF cyclobenzaprine 5 mg tablet 5 mg PO Q8H PRN (Reason: pain (scale score 7-10)) 5 Days Qty: 14 0RF prednisone 20 mg tablet 40 mg PO DAILY Qty: 8 0RF valacyclovir 1 gram tablet 1,000 mg PO TID Qty: 20 0RF Interventions: ED Discharge Assessment Last Done: 01/14/25 21:54 Discharge Date/Time: 01/14/25 21:54 Print Language: Hungarian
[2025-01-14 21:33] VITALS: BP 101/58; PULSE 74; RESP 16; TEMP 36.7; O2SAT 99
[2025-01-14] MEDS: Lactulose 20 GM/30 ML SOLUTION PO (21:52)
[2025-01-14] MEDS: Sennosides 8.6 MG TABLET PO (21:52)
[2025-01-14 21:54] VITALS: BP 101/58; PULSE 74; RESP 16; TEMP 36.7; O2SAT 99
== END 2025-01-14 21:54 | disposition home or self-care (01) ==
PROVIDERS: Emergency Provider Emergency Medicine
DX: M54.50 Low back pain, unspecified (principal); K59.00 Constipation, unspecified; Z79.891 Long term (current) use of opiate analgesic
CPT/HCPCS: 74018; 99283; 99284

== ENCOUNTER → 2025-01-14 16:14 | Outpatient (BNV) | payer OTHER, SELFPAY | PROVIDERS: Visit Provider Radiology Diagnostic Radiology | DX: K56.41 Fecal impaction (principal) | CPT/HCPCS: 74018 ==